=== PATIENT | male | born 1945 | race Caucasian/White ===

== ENCOUNTER 2024-01-28 05:20 | Day surgery (SDC) | payer OTHER ==
[~2024-01-28] VITALS: Ht 170.2 cm; Wt 83.9 kg
[2024-01-28] MEDS ORDERED: CELECOXIB 100 MG CAPSULE ONE (05:58)
[2024-01-28] MEDS ORDERED: SCOPOLAMINE HYDROBROMIDE 1 MG PATCH .72 H (TRANSDERM-SCOP) TD ONE (05:59)
[2024-01-28] MEDS ORDERED: ACETAMINOPHEN 500 MG TABLET ONE (05:59)
[2024-01-28] MEDS ORDERED: oxyCODONE HCL 10 MG TAB.ER.12H PO ONE (06:00)
[2024-01-28] MEDS ORDERED: GABAPENTIN 300 MG CAPSULE ONE (06:01)
[2024-01-28] MEDS: ACETAMINOPHEN 500 MG TABLET PO ONE (06:30)
[2024-01-28] MEDS: CELECOXIB 100 MG CAPSULE PO ONE (06:30)
[2024-01-28] MEDS: SCOPOLAMINE HYDROBROMIDE 1 MG PATCH .72 H (TRANSDERM-SCOP) TD ONE (06:30)
[2024-01-28] MEDS: GABAPENTIN 300 MG CAPSULE PO ONE (06:30)
[2024-01-28] MEDS ORDERED: CEFAZOLIN SOD 2 GM in D5W 50 ML IV ONE (07:00)
[2024-01-28] MEDS: oxyCODONE HCL 10 MG TAB.ER.12H PO ONE (07:05)
[2024-01-28] MEDS ORDERED: hydrALAZINE HCL 20 MG/ML VIAL IVP PRN (08:00)
[2024-01-28] MEDS ORDERED: ONDANSETRON HCL 4 MG/2 ML VIAL IVP PRN ×2 (08:00→11:45)
[2024-01-28] MEDS ORDERED: LR 1,000 ML IV SCH (08:00)
[2024-01-28] MEDS ORDERED: HYDROmorphone 1 MG/ML INJ. CARTRIDGE IVP PRN ×4 (08:00→11:00)
[2024-01-28] MEDS ORDERED: MEPERIDINE HCL/PF 25 MG/ML DISP.SYRIN IVP PRN (08:00)
[2024-01-28] MEDS ORDERED: BUPIVACAINE /PF 0.25% 30 ML VIAL INJ ONE (09:20)
[2024-01-28] MEDS ORDERED: LACTULOSE 20 GM/30 ML UDC PO PRN (09:30)
[2024-01-28] MEDS ORDERED: METOCLOPRAMIDE HCL 10 MG/2 ML VIAL IVP PRN (09:30)
[2024-01-28] MEDS ORDERED: BISACODYL 10 MG/SUPPOSITORY RC PRN (09:30)
[2024-01-28] MEDS ORDERED: DIPHENHYDRAMINE HCL 25 MG CAPSULE PO PRN (09:30)
[2024-01-28] MEDS ORDERED: LORATADINE 10 MG TABLET PO PRN (11:00)
[2024-01-28] MEDS ORDERED: traMADol HCL HCL 50 MG TABLET (ULTRAM) PO PRN (11:00)
[2024-01-28] MEDS ORDERED: oxyCODONE HCL 5 MG TABLET PO PRN ×2 (11:00)
[2024-01-28] MEDS ORDERED: ceFAZolin SODIUM 2 GM in D5W 50 ML IV SCH (11:15)
[2024-01-28] MEDS ORDERED: HYDROmorphone 1 MG/ML INJ. CARTRIDGE ONE (11:16)
[2024-01-28] MEDS: HYDROmorphone 1 MG/ML INJ. CARTRIDGE IVP PRN (11:30)
[2024-01-28] MEDS: TAMSULOSIN HCL 0.4 MG CAP PO ONE (12:35)
[2024-01-28] MEDS ORDERED: TAMSULOSIN HCL 0.4 MG CAP PO ONE (13:00)
[2024-01-28 13:13] VITALS: BP_SYST 128; PULSE 69; RESP 18; TEMP 98.7; O2SAT 99
[2024-01-28] MEDS ORDERED: ACETAMINOPHEN 500 MG TABLET PO SCH (14:00)
[2024-01-28] MEDS ORDERED: KETOROLAC TROMETHAMINE 10 MG TABLET (TORADOL) PO SCH (14:00)
[2024-01-28] MEDS ORDERED: SENNOSIDES/DOCUSATE SODIUM 1 TAB TABLET(SENOKOT-S) PO SCH (21:00)
[2024-01-29] MEDS ORDERED: TAMSULOSIN HCL 0.4 MG CAP PO SCH (09:00)
[2024-01-29] MEDS ORDERED: APIXABAN 2.5 MG TABLET PO SCH (09:00)
[2024-01-29] MEDS ORDERED: CELECOXIB 200 MG CAPSULE PO SCH (11:00)
== END 2024-01-28 14:40 | disposition home or self-care (01) ==
LOC: SDS 05:20
PROVIDERS: ATTEND Student in an Organized Health Care Education/Training Program
DX: M17.12 Unilateral primary osteoarthritis, left knee (principal); M25.561 Pain in right knee; M25.762 Osteophyte, left knee; I10 Essential (primary) hypertension; E78.5 Hyperlipidemia, unspecified; G47.33 Obstructive sleep apnea (adult) (pediatric); E66.3 Overweight; M06.9 Rheumatoid arthritis, unspecified; Z68.29 Body mass index [BMI] 29.0-29.9, adult; Z96.651 Presence of right artificial knee joint; Z87.891 Personal history of nicotine dependence; Z79.82 Long term (current) use of aspirin; Z79.899 Other long term (current) drug therapy
CPT/HCPCS: 87081; 27447; 97162; 64447; 73560; 97110; 97530; 97116; 88305; 88311; C1776 ×3; J3490 ×2; J0690; J0696; J3465; J3010; J1170; J7060 ×2; J7030; C1713

== ENCOUNTER 2024-01-28 23:01 | Emergency (ER) | payer OTHER ==
[~2024-01-28] VITALS: Ht 170.2 cm; Wt 83.9 kg
[2024-01-28 23:07] VITALS: BP_SYST 122; PULSE 76; RESP 16; TEMP 98.5; O2SAT 96
[2024-01-29 01:21] LABS: BASOPHILS % (AUTO) 0.3 % (0.0-2.0); EOSINOPHILS # (AUTO) 0.1 K/uL (0.0-0.4); EOSINOPHILS % (AUTO) 1.5 % (0.0-4.0); HEMATOCRIT 27.3 % (36-54); HEMOGLOBIN 9.4 g/dL (14.0-18.0); LYMPHOCYTES # (AUTO) 0.7 K/uL (1.0-5.5); LYMPHOCYTES % (AUTO) 8.1 % (20.5-51.5); MEAN CORPUSCULAR HEMOGLOBIN 32 pg (27-31); MEAN CORPUSCULAR HGB CONC 34 % (32-36); MEAN CORPUSCULAR VOLUME 94 fL (79.0-98.0); MONOCYTES # (AUTO) 0.8 K/uL (0.0-1.0); MONOCYTES % (AUTO) 9.4 % (1.7-9.3); NEUTROPHILS # (AUTO) 6.9 K/uL (1.8-7.7); NEUTROPHILS % (AUTO) 80.7 % (40.0-70.0); PLATELET COUNT (AUTO) 189 K/uL (130-430); RED CELL DISTRIBUTION WIDTH 16.7 % (9.0-15.0); WHITE BLOOD COUNT (AUTO) 8.5 K/uL (4.8-10.8)
[2024-01-29 01:49] LABS: INR 1.1 (0.80-1.20); PROTHROMBIN TIME 11.5 SECS (9.5-12.5)
[2024-01-29 01:55] LABS: ANION GAP 9 (5-15); CARBON DIOXIDE 23 mmol/L (23-29); CHLORIDE 108 mmol/L (98-107); CREATININE 0.84 mg/dL (0.55-1.30); GLUCOSE 140 mg/dL (74-106); POTASSIUM 4.4 mmol/L (3.5-5.1); SODIUM SERUM 140 mmol/L (136-145); UREA NITROGEN, BLOOD 14 mg/dL (8-21)
[2024-01-29 02:01] LABS: ALCOHOL, BLOOD < 3 mg/dL (<10)
[2024-01-29 02:14] LABS: BILIRUBIN,URINE NEGATIVE (NEGATIVE); COLOR,URINE YELLOW (YELLOW); GLUCOSE,URINE NEGATIVE (NEGATIVE); KETONES,URINE NEGATIVE (NEGATIVE); LEUKOCYTE ESTERASE ,URINE NEGATIVE (NEGATIVE); NITRITE, URINE NEGATIVE (NEGATIVE); PH,URINE 6.5 (5.0-8.0); PROTEIN URINE NEGATIVE (NEGATIVE); UROBILINOGEN,URINE 0.2 (0.2-1.0)
[2024-01-29 02:33] LABS: BACTERIA,URINE None Seen /HPF (None Seen); BLOOD, URINE TRACE (NEGATIVE); CLARITY/URINE HAZY (CLEAR); WBC,URINE 0-3 /HPF (0-3)
[2024-01-29 02:37] LABS: BARBITURATE, URINE NEGATIVE (NEG <=200); BENZODIAZEPINE, URINE NEGATIVE (NEG <=150); CANNABINOID, URINE NEGATIVE (NEG <=50); COCAINE, URINE NEGATIVE (NEG <=150); METHAMPHETAMINES SCREEN,URINE NEGATIVE (NEG <=500); OPIATE, URINE POSITIVE (NEG <=100); PHENCYCLIDINE SCREEN,URINE NEGATIVE (NEG <=25); URINE AMPHETAMINE NEGATIVE (NEG <=500); URINE METHADONE NEGATIVE (NEG <=200); URINE OXYCODONE SCREEN POSITIVE (NEG <=100)
[2024-01-29 02:38] LABS: UR TRICYCLIC ANTIDEPRESSANTS NEGATIVE (NEG <=300)
[2024-01-29 03:25] VITALS: BP_SYST 148; PULSE 59; RESP 16; TEMP 98.3; O2SAT 98
== END 2024-01-29 03:25 | disposition home or self-care (01) ==
LOC: SED 23:01
DX: R33.9 Retention of urine, unspecified (principal); I10 Essential (primary) hypertension; Z96.653 Presence of artificial knee joint, bilateral; Z98.890 Other specified postprocedural states
CPT/HCPCS: 99285; 80307; 80048; 85025; 85610; 85730; 84484; 36415; 51702; 81001; 70450; 71045; 93005; G0482; 81000; 81015

== ENCOUNTER 2024-01-29 12:45 | Emergency (ER) | payer OTHER ==
[~2024-01-29] VITALS: Ht 170.2 cm; Wt 84.4 kg
[2024-01-29 13:07] VITALS: BP_SYST 135; PULSE 77; RESP 20; TEMP 98.3; O2SAT 93
== END 2024-01-29 13:25 | disposition home or self-care (01) ==
LOC: SED 12:45
DX: Z46.6 Encounter for fitting and adjustment of urinary device (principal); I10 Essential (primary) hypertension; Z96.653 Presence of artificial knee joint, bilateral
CPT/HCPCS: 99281